=== PATIENT | female | born 1970 | race Caucasian/White ===

== ENCOUNTER → 2016-10-11 | Outpatient (CLI) | payer BC ==
--- NOTE | 2016-10-11 10:15 | MM ---
Reason for exam: clinical finding. Last mammogram was performed 11 months ago. History: Taking hormonal contraceptives for 2 months beginning at age 40. Physical Findings: Nurse did not find any significant physical abnormalities on exam. MG Diagnostic Mammo w CAD PRITI Bilateral CC and MLO view(s) were taken. Prior study comparison: November 03, 2015, bilateral MG screening mammo w CAD. November 01, 2014, bilateral MG screening mammo w CAD. The breast tissue is heterogeneously dense. This may lower the sensitivity of mammography. There is no discrete abnormality including area of concern. These results were verbally communicated with the patient and result sheet given to the patient on 10/11/16. ASSESSMENT: Incomplete: need additional imaging evaluation, BI-RAD 0 RECOMMENDATION: Ultrasound of the right breast.
--- NOTE | 2016-10-11 10:16 | USB ---
Reason for exam: additional evaluation requested from abnormal screening. History: Taking hormonal contraceptives for 2 months beginning at age 40. US Breast RT Right breast ultrasound includes all four quadrants, the retroareolar region and axilla. Finding demonstrate a 0.4 x 0.4 x 0.2cm oval lesion too small to characterize at 4 o'clock and a 0.7 x 0.7 x 0.2cm oval hypoechoic lesion at 10 o'clock. These results were verbally communicated with the patient and result sheet given to the patient on 10/11/16. ASSESSMENT: Probably benign, BI-RAD 3 RECOMMENDATION: Follow-up diagnostic mammogram and ultrasound of the right breast in 6 months. Manage patient on a clinical basis.
== END | disposition home or self-care (01) ==
LOC: RADMAMWWP 07:26
PROVIDERS: ATTEND Family Medicine
DX: R92.2 Inconclusive mammogram (principal); R92.8 Other abnormal and inconclusive findings on diagnostic imaging of breast
CPT/HCPCS: 76641; G0204

== ENCOUNTER → 2017-04-18 | Outpatient (CLI) | payer BC ==
--- NOTE | 2017-04-18 09:19 | MM ---
Reason for exam: follow-up at short interval from prior study. Last mammogram was performed 6 months ago. History: Took hormonal contraceptives for 2 months beginning at age 40. Physical Findings: Nurse did not find any significant physical abnormalities on exam. MG Diagnostic Mammo RT w CAD CC and MLO view(s) were taken of the right breast. Prior study comparison: October 11, 2016, bilateral MG diagnostic mammo w CAD PRITI. November 03, 2015, bilateral MG screening mammo w CAD. The breast tissue is heterogeneously dense. This may lower the sensitivity of mammography. There is no discrete abnormality. No significant new findings when compared with previous films. These results were verbally communicated with the patient and result sheet given to the patient on 04/18/17. ASSESSMENT: Incomplete: need additional imaging evaluation, BI-RAD 0 RECOMMENDATION: Ultrasound of the right breast.
--- NOTE | 2017-04-18 09:21 | USB ---
Reason for exam: follow-up at short interval from prior study. History: Took hormonal contraceptives for 2 months beginning at age 40. US Breast RT Technologist: Mariam Chin Right breast ultrasound includes all four quadrants, the retroareolar region and axilla. Finding demonstrates a 0.4 x 0.4 x 0.2cm oval lesion too small to characterize at 4 o'clock and a 0.9 x 0.8 x 0.3cm oval, hypoechoic lesion at 10 o'clock. These results were verbally communicated with the patient and result sheet given to the patient on 04/18/17. ASSESSMENT: Probably benign, BI-RAD 3 RECOMMENDATION: Follow-up diagnostic mammogram of both breasts in 6 months. Ultrasound of the right breast in 6 months.
== END | disposition home or self-care (01) ==
LOC: RADMAMWWP 07:35
PROVIDERS: ATTEND Family Medicine
DX: R92.8 Other abnormal and inconclusive findings on diagnostic imaging of breast (principal)
CPT/HCPCS: 76641; G0206

== ENCOUNTER → 2017-10-21 | Outpatient (CLI) | payer BC ==
--- NOTE | 2017-10-21 10:41 | MM ---
Reason for exam: follow-up at short interval from prior study. Last mammogram was performed 6 months ago. History: Family history of breast cancer in sister at age 71. Took hormonal contraceptives for 2 months beginning at age 40. Physical Findings: Nurse did not find any significant physical abnormalities on exam. MG 3D Diag Mammo W/Cad PRITI Bilateral CC and MLO view(s) were taken. Prior study comparison: April 18, 2017, right breast MG diagnostic mammo RT w CAD. October 11, 2016, bilateral MG diagnostic mammo w CAD PRITI. The breast tissue is heterogeneously dense. This may lower the sensitivity of mammography. There is no discrete abnormality. Focal asymmetry right MLO view is stable. No significant new findings when compared with previous films. These results were verbally communicated with the patient and result sheet given to the patient on 10/21/17. ASSESSMENT: Incomplete: need additional imaging evaluation, BI-RAD 0 RECOMMENDATION: Ultrasound of both breasts. Manage patient on a clinical basis.
--- NOTE | 2017-10-21 10:44 | USB ---
Reason for exam: additional evaluation requested from abnormal screening. History: Family history of breast cancer in sister at age 71. Took hormonal contraceptives for 2 months beginning at age 40. US Breast BILAT Right complete breast ultrasound includes all four quadrants, the retroareolar region and axilla. Finding demonstrates a 0.3 x 0.3 x 0.2cm oval, mixed lesion at 2 o'clock, a 0.3 x 0.2 x 0.2cm oval, cystic lesion at 6 o'clock, a 1.1 x 1.2 x 0.3cm oval, cystic lesion at 10 o'clock, a 0.6 x 0.3 x 0.2cm oval, cystic lesion at 11 o'clock and duct ectasia at the posterior nipple. Left complete breast ultrasound includes all four quadrants, the retroareolar region and axilla. Finding demonstrates a 0.4 x 0.5 x 0.2cm oval clustered lesion too small to characterize at 4 o'clock and ductal ectasia at 9 o'clock zone A. These results were verbally communicated with the patient and result sheet given to the patient on 10/21/17. ASSESSMENT: Probably benign, BI-RAD 3 RECOMMENDATION: Ultrasound of both breasts in 6 months. Manage patient on a clinical basis.
== END | disposition home or self-care (01) ==
LOC: RADMAMWWP 08:16
PROVIDERS: ATTEND Family Medicine
DX: N63.0 Unspecified lump in unspecified breast (principal)
CPT/HCPCS: 77062

== ENCOUNTER → 2017-12-17 | Outpatient (CLI) | payer BC ==
[2017-12-17 09:25] LABS: Basophils % (A) 1 %; Eosinophils # (A) 0.1 k/uL (0-0.7); Eosinophils % (A) 1 %; HCT 43.5 % (34.0-46.0); HGB 14.4 gm/dL (11.4-16.0); Lymphocytes # (A) 1.2 k/uL (1.0-4.8); Lymphocytes % (A) 26 %; MCHC 33.2 g/dL (31.0-37.0); MCV 93.3 fL (80.0-100.0); Mean Platelet Volume 6.8; Monocytes # (A) 0.4 k/uL (0-1.0); Monocytes % (A) 8 %; Neutrophils % (A) 62 %; Platelet Count 183 k/uL (150-450); RBC 4.67 m/uL (3.80-5.40); RDW 13.6 % (11.5-15.5); WBC 4.8 k/uL (3.8-10.6)
[2017-12-17 09:32] LABS: ALT 29 U/L (9-52); AST 23 U/L (14-36); Albumin 4.5 g/dL (3.5-5.0); Alkaline Phosphatase 49 U/L (38-126); Anion Gap 11 mmol/L; Blood Urea Nitrogen 17 mg/dL (7-17); Calcium 9.6 mg/dL (8.4-10.2); Carbon Dioxide 26 mmol/L (22-30); Chloride 105 mmol/L (98-107); Cholesterol 151 mg/dL (<200); Glucose 88 mg/dL (74-99); HDL Cholesterol 73 mg/dL (40-60); LDL Cholesterol,Calculated 66 mg/dL (0-99); Potassium 4.3 mmol/L (3.5-5.1); Sodium 142 mmol/L (137-145); Total Bilirubin 0.9 mg/dL (0.2-1.3); Triglycerides 61 mg/dL (<150)
== END | disposition home or self-care (01) ==
LOC: LABWHC1 08:32
PROVIDERS: ATTEND Internal Medicine
DX: Z00.00 Encounter for general adult medical examination without abnormal findings (principal)
CPT/HCPCS: 36415; 80053; 80061; 85025

== ENCOUNTER → 2018-05-02 | Outpatient (CLI) | payer BC ==
--- NOTE | 2018-05-02 10:01 | USB ---
Reason for exam: follow-up at short interval from prior study. History: Family history of breast cancer in sister at age 71. Took hormonal contraceptives for 2 months beginning at age 40. Physical Findings: Nurse Summary: right palpable 10 o'clock 0.5 x 1cm, movable, nontender, left breast nipple inversion, palpable 11 o'clock, 1 o'clock, 0.5 x 1cm, movable, nontender (nurse ts). US Breast BILAT Right complete breast ultrasound includes all four quadrants, the retroareolar region and axilla. Finding demonstrates three oval, cystic lesions measuring 0.4 x 0.4 x 0.3cm at 2 o'clock, 0.8 x 0.9 x 0.4cm at 6 o'clock and 1.2 x 0.8 x 0.3cm at 10 o'clock. Left complete breast ultrasound includes all four quadrants, the retroareolar region and axilla. Finding demonstrates a 0.8 x 0.6 x 0.4cm oval, vascular, probable node at 1 o'clock and no finding at 11 o'clock BB. These results were verbally communicated with the patient and result sheet given to the patient on 05/02/18. ASSESSMENT: Benign, BI-RAD 2 RECOMMENDATION: Routine screening mammogram of both breasts in 6 months. Back on schedule for October 2018.
== END | disposition home or self-care (01) ==
LOC: RADUSWWP 07:58
PROVIDERS: ATTEND Family Medicine
DX: R92.8 Other abnormal and inconclusive findings on diagnostic imaging of breast (principal)

== ENCOUNTER → 2018-12-25 | Outpatient (CLI) | payer BC ==
--- NOTE | 2018-12-26 07:40 | MM ---
Reason for exam: follow-up at short interval from prior study. Last mammogram was performed 1 year and 2 months ago. History: Family history of breast cancer in sister at age 71. Took hormonal contraceptives for 2 months beginning at age 40. Physical Findings: Nurse Summary: 3 palpables (nurse kp). MG 3D Diag Mammo W/Cad PRITI Bilateral CC and MLO view(s) were taken. Prior study comparison: October 21, 2017, bilateral MG 3d diag mammo w/cad PRITI. April 18, 2017, right breast MG diagnostic mammo RT w CAD. The breast tissue is heterogeneously dense. This may lower the sensitivity of mammography. There is chronic nodularity bilaterally. These results were verbally communicated with the patient and result sheet given to the patient on 12/25/18. ASSESSMENT: Incomplete: need additional imaging evaluation, BI-RAD 0 RECOMMENDATION: Ultrasound of both breasts. (palpable abnormality)
--- NOTE | 2018-12-26 07:42 | USB ---
Reason for exam: additional evaluation requested from abnormal screening. History: Family history of breast cancer in sister at age 71. Took hormonal contraceptives for 2 months beginning at age 40. US Breast BILAT Right complete breast ultrasound includes all four quadrants, the retroareolar region and axilla. Finding demonstrates a 3 x 2 x 3mm oval, cystic lesion at 3 o'clock, a 4 x 3 x 5mm lesion too small to characterize at 6 o'clock and a 12 x 4 x 8mm hypoechoic, vascular lesion at 10 o'clock questionable lymph node adjacent to cyst. Left complete breast ultrasound includes all four quadrants, the retroareolar region and axilla. Finding demonstrates no cystic or solid lesion seen. These results were verbally communicated with the patient and result sheet given to the patient on 12/25/18. ASSESSMENT: Probably benign, BI-RAD 3 RECOMMENDATION: Follow-up diagnostic mammogram and ultrasound of the right breast in 6 months.
== END | disposition home or self-care (01) ==
LOC: RADMAMWWP 13:29
PROVIDERS: ATTEND Family Medicine
DX: R92.8 Other abnormal and inconclusive findings on diagnostic imaging of breast (principal)
CPT/HCPCS: 77062; 77066

== ENCOUNTER → 2019-01-03 | Outpatient (CLI) | payer BC ==
[2019-01-03 07:50] LABS: Basophils % (A) 1 %; Eosinophils # (A) 0.1 k/uL (0-0.7); Eosinophils % (A) 1 %; HGB 14.1 gm/dL (11.4-16.0); Lymphocytes # (A) 1.6 k/uL (1.0-4.8); Lymphocytes % (A) 20 %; MCH 30.2 pg (25.0-35.0); MCHC 32.1 g/dL (31.0-37.0); MCV 94.2 fL (80.0-100.0); Mean Platelet Volume 7.5; Monocytes # (A) 0.5 k/uL (0-1.0); Monocytes % (A) 7 %; Neutrophils # (A) 5.3 k/uL (1.3-7.7); Neutrophils % (A) 69 %; Platelet Count 230 k/uL (150-450); RBC 4.67 m/uL (3.80-5.40); RDW 13.2 % (11.5-15.5); WBC 7.7 k/uL (3.8-10.6)
[2019-01-03 12:01] LABS: African American GFR (CKD) 117.1 (60.0-200.0); Albumin 4.3 g/dL (3.80-4.90); Albumin/Globulin Ratio 2.15 (1.60-3.17); Anion Gap 7.3 mmol/L (4.00-12.00); BUN/Creat Ratio 18.57 Ratio (12.00-20.00); Calcium 9.3 mg/dL (8.7-10.3); Carbon Dioxide 28.7 mmol/L (21.6-31.8); LDL Cholesterol,Calculated 58.4 mg/dL (0.0-131.0); Total Bilirubin 0.9 mg/dL (0.3-1.2); Total Protein 6.3 g/dL (6.2-8.2); VLDL Calculation 13.6 mg/dL (5.00-40.00)
== END | disposition home or self-care (01) ==
LOC: LABWHC1 06:39
PROVIDERS: ATTEND Internal Medicine
DX: Z00.00 Encounter for general adult medical examination without abnormal findings (principal); E55.9 Vitamin D deficiency, unspecified
CPT/HCPCS: 36415; 80053; 80061; 82306; 85025

== ENCOUNTER → 2019-01-29 | Outpatient (CLI) | payer BC ==
[2019-01-29 15:23] LABS: Basophils % (A) 0 %; Eosinophils # (A) 0.1 k/uL (0-0.7); Eosinophils % (A) 1 %; HCT 42.1 % (34.0-46.0); HGB 13.9 gm/dL (11.4-16.0); Lymphocytes # (A) 1.4 k/uL (1.0-4.8); Lymphocytes % (A) 16 %; MCH 30.6 pg (25.0-35.0); MCV 92.7 fL (80.0-100.0); Mean Platelet Volume 7.2; Monocytes # (A) 0.5 k/uL (0-1.0); Monocytes % (A) 6 %; Neutrophils # (A) 6.2 k/uL (1.3-7.7); Neutrophils % (A) 75 %; Platelet Count 247 k/uL (150-450); RBC 4.54 m/uL (3.80-5.40); WBC 8.3 k/uL (3.8-10.6)
== END | disposition home or self-care (01) ==
LOC: LABPAT 14:25
PROVIDERS: ATTEND Obstetrics & Gynecology Obstetrics
DX: Z01.812 Encounter for preprocedural laboratory examination (principal); N92.0 Excessive and frequent menstruation with regular cycle; N84.0 Polyp of corpus uteri
CPT/HCPCS: 36415; 85025

== ENCOUNTER 2019-02-06 06:33 | Day surgery (SDC) | payer BC ==
[2019-01-30 12:30] VITALS: BMI 23.2
--- NOTE | 2019-02-05 13:17 | P.HPOB ---
History of Present Illness H&P Date: 02/05/19 Chief Complaint: menorrhagia, endometrial polyp This is a 48yo that presents with c/o HMB, increasing over the last few months. she was previously on an ocp and did discontinue it about 2 years, and has done well. she has noted positive heavy menses, with irregular interval at times. Positive clots. she had a tubal ligation done after her last child and isnt interested in going back on an ocp. she denies changes in bladder bowel habits. she was counseled on mirena and EA and she elects EA. Review of Systems Constitutional: Denies chills, Denies fatigue, Denies fever Ears, nose, mouth and throat: Denies headache Cardiovascular: Denies chest pain, Denies edema Respiratory: Denies cough Gastrointestinal: Denies constipation, Denies diarrhea, Denies nausea, Denies vomiting Genitourinary: Reports Past Medical History Past Medical History: No Reported History History of Any Multi-Drug Resistant Organisms: None Reported Past Surgical History: Appendectomy, Tubal Ligation Additional Past Surgical History / Comment(s): [place] teeth extracted. Past Anesthesia/Blood Transfusion Reactions: No Reported Reaction Past Psychological History: No Psychological Hx Reported Smoking Status: Never smoker Past Alcohol Use History: Rare Past Drug Use History: None Reported - Past Family History Mother Family Medical History: No Reported History Medications and Allergies Home Medications Medication Instructions Recorded Confirmed Type Cholecalciferol (Vitamin D3) 2,000 unit PO DAILY 01/30/19 01/30/19 History [Vitamin D3] Vitamin B Complex 1 each PO DAILY 01/30/19 01/30/19 History Allergies Allergy/AdvReac Type Severity Reaction Status Date / Time Sulfa (Sulfonamide Allergy Rash/Hives Verified 01/30/19 12:31 Antibiotics) Exam Osteopathic Statement: *. No significant issues noted on an osteopathic structural exam other than those noted in the History and Physical/Consult. targeted exam done on this date, in general this is a well nourished well developed female in NAD, heart has a RRR, breathing is non labored. - OBG Physical Exam Abdomen: bowel sounds normal Vulva: both: normal Vagina: no discharge, no atrophic mucosa, no ulceration, no cystocele Cervix: no cyst noted, no discharge, no friable Uterus: normal size Adnexa: both: normal Anus/Rectum: normal perianal skin Assessment and Plan (1) Menorrhagia Status: Acute Code(s): N92.0 - EXCESSIVE AND FREQUENT MENSTRUATION WITH REGULAR CYCLE SNOMED Code(s): 195627566 Plan: Plan H DC EA. surgery reviewed in detail and all questions answered. pos enod metrial polyp to be removed at the time of the DC
[~2019-02-06 06:33] MED LIST: DEXAMETHASONE SOD PHOSPHATE 10 MG/ML 1 ML VIAL IV ONE; HYDROmorphone 0.5 MG/0.5 ML SYRINGE IVP PRN; LACTATED RINGERS 1,000 ML IV SCH; MIDAZOLAM 2 MG/2 ML VIAL IV PRN; ONDANSETRON 4 MG/2 ML VIAL IVP ONE; Pre Op ABX Message 1 EACH MISC MISCELLANE ONE; SCOPOLAMINE 1.5MG/72HR PATCH TRANSDERM ONE
[2019-02-06] MEDS ORDERED: fentaNYL (PF) 50 MCG/ML 2 ML AMP ONE (07:31)
[2019-02-06] MEDS ORDERED: KETOROLAC 30 MG/ML 1 ML VIAL ONE (07:31)
[2019-02-06] MEDS ORDERED: MIDAZOLAM 2 MG/2 ML VIAL ONE (07:31)
[2019-02-06] MEDS ORDERED: LIDOCAINE 1% INJ 10MG/ML (20 ML MDV) ONE (07:31)
[2019-02-06] MEDS ORDERED: PROPOFOL 10 MG/ML 20 ML VIAL IV ONE (07:31)
[2019-02-06 08:24] VITALS: TEMP 97
[2019-02-06 08:35] VITALS: RESP 18
--- NOTE | 2019-02-06 09:10 | P.OP ---
Date of Procedure: 02/06/19 Preoperative Diagnosis: Menorrhagia Postoperative Diagnosis: Same Procedure(s) Performed: Hysteroscopy, dilation and curettage, NovaSure endometrial ablation. Anesthesia: MAC Surgeon: Stephanie Garza Estimated Blood Loss (ml): 5 IV fluids (ml): 500 Urine output (ml): 200 Pathology: other (Endometrial curettings) Condition: stable Disposition: PACU Indications for Procedure: Heavy menstrual bleeding Operative Findings: Slightly enlarged cavity and 11 cm, for the NovaSure length of 6.5, 4.4 cm for width for a total cycle time of 57 seconds. Description of Procedure: Patient was seen in the preoperative area and informed consent was obtained. All questions were answered. Patient was taken back to the operating suite where general anesthesia was obtained without difficulty by the anesthesia department. She was then prepped and draped in normal sterile fashion in the dorsal lithotomy position. A red rubber catheter was then used to drain the bladder clear yellow urine. A weighted speculum was placed in the posterior vaginal vault the anterior lip of the cervix was visualized and grasped with a single-tooth tenaculum. Endocervical canal was then dilated. Uterine sound was then used to estimate the total uterine length of 11 cm. At this time the hysteroscope was placed through the cervix and toward the endometrial cavity. The above-noted findings were visualized. At this time a sharp curettage was performed until gritty texture was noted in all 4 quadrants of the uterine cavity. The NovaSure device was opened and set to the appropriate measurements for this patient's uterus. It was then operated according to resin mixer's instruction after the cavity assessment was passed the cycle was completed for 57 seconds. Afterwards device was removed without difficulty the single-tooth tenaculum was taken off the anterior lip of the cervix. Hemostasis was appreciated. All counts are correct 2 patient tolerated procedure well was taken to the recovery room awake and in stable condition.
[2019-02-06 09:20] VITALS: BP 105/71; PULSE 66
== END 2019-02-06 10:28 | disposition home or self-care (01) ==
LOC: OR 06:33
PROVIDERS: ATTEND Obstetrics & Gynecology Obstetrics
DX: N92.0 Excessive and frequent menstruation with regular cycle (principal); N84.0 Polyp of corpus uteri; Z98.51 Tubal ligation status; Z88.2 Allergy status to sulfonamides
CPT/HCPCS: 81025; 88305; 58563; J2250; J1100; J2405; J2001; J3010; J1885; J2704

== ENCOUNTER → 2019-09-12 | Outpatient (CLI) | payer BC ==
--- NOTE | 2019-09-12 10:41 | MM ---
Reason for exam: follow-up at short interval from prior study. Last mammogram was performed 9 months ago. History: Family history of breast cancer in sister at age 71. Took hormonal contraceptives for 2 months beginning at age 40. Physical Findings: Nurse did not find any significant physical abnormalities on exam. MG 3D Diag Mammo W/Cad RT CC and MLO view(s) were taken of the right breast. Prior study comparison: December 25, 2018, bilateral MG 3d diag mammo w/cad PRITI. October 21, 2017, bilateral MG 3d diag mammo w/cad PRITI. The breast tissue is heterogeneously dense. This may lower the sensitivity of mammography. Stable nodularity. 6 month follow up recommended from 12/25/18. These results were verbally communicated with the patient and result sheet given to the patient on 09/12/19. ASSESSMENT: Probably benign, BI-RAD 3 RECOMMENDATION: Follow-up diagnostic mammogram of both breasts in 3 months. Ultrasound of the right breast in 3 months. Back on schedule for December 2019. Manage patient on a clinical basis.
== END | disposition home or self-care (01) ==
LOC: RADMAMWWP 09:29
PROVIDERS: ATTEND Family Medicine
DX: N63.10 Unspecified lump in the right breast, unspecified quadrant (principal); N63.20 Unspecified lump in the left breast, unspecified quadrant; R92.8 Other abnormal and inconclusive findings on diagnostic imaging of breast
CPT/HCPCS: 77061; 77065

== ENCOUNTER → 2019-11-21 | Outpatient (CLI) | payer BC ==
[2019-11-21 08:02] LABS: Basophils % (A) 1 %; Eosinophils # (A) 0.1 k/uL (0-0.7); Eosinophils % (A) 2 %; HCT 43.9 % (34.0-46.0); HGB 14.7 gm/dL (11.4-16.0); Lymphocytes # (A) 1.5 k/uL (1.0-4.8); Lymphocytes % (A) 24 %; MCH 31.7 pg (25.0-35.0); MCHC 33.5 g/dL (31.0-37.0); MCV 94.8 fL (80.0-100.0); Mean Platelet Volume 7.9; Monocytes # (A) 0.5 k/uL (0-1.0); Monocytes % (A) 8 %; Neutrophils # (A) 3.9 k/uL (1.3-7.7); Neutrophils % (A) 63 %; Platelet Count 231 k/uL (150-450); RBC 4.63 m/uL (3.80-5.40); RDW 12.5 % (11.5-15.5); WBC 6.1 k/uL (3.8-10.6)
== END | disposition home or self-care (01) ==
LOC: LABPAT 07:13
PROVIDERS: ATTEND Obstetrics & Gynecology Obstetrics
DX: Z01.818 Encounter for other preprocedural examination (principal); R31.9 Hematuria, unspecified
CPT/HCPCS: 36415; 85025

== ENCOUNTER 2019-11-27 08:40 | Day surgery (SDC) | payer BC ==
[2019-11-26 10:44] VITALS: BMI 23.6
[~2019-11-27 08:40] MED LIST changes: +LIDOCAINE 1% (10MG/ML) FOR IV START INTRADERMA PRN; -MIDAZOLAM 2 MG/2 ML VIAL IV PRN
[2019-11-27] MEDS ORDERED: fentaNYL (PF) 50 MCG/ML 2 ML AMP ONE (10:36)
[2019-11-27] MEDS ORDERED: KETOROLAC 30 MG/ML 1 ML VIAL ONE (10:36)
[2019-11-27] MEDS ORDERED: LIDOCAINE 1% INJ 10MG/ML (20 ML MDV) ONE (10:36)
[2019-11-27] MEDS ORDERED: MIDAZOLAM 2 MG/2 ML VIAL ONE (10:36)
[2019-11-27] MEDS ORDERED: PROPOFOL 10 MG/ML 20 ML VIAL IV ONE (10:36)
[2019-11-27] MEDS ORDERED: SILVER NITRATE APPLICATOR 1 EACH STICK..EA. TOPICAL ONE (10:55)
[2019-11-27 11:12] VITALS: TEMP 97.7
--- NOTE | 2019-11-27 11:44 | P.OP ---
Date of Procedure: 11/27/19 Preoperative Diagnosis: Hematometra status post endometrial ablation January 2019. Postoperative Diagnosis: Same plus cervical stenosis Procedure(s) Performed: Hysteroscopy, dilation and curettage Anesthesia: MAC Surgeon: Stephanie Garza Estimated Blood Loss (ml): 5 IV fluids (ml): 200 Urine output (ml): 100 Pathology: other (Endometrial curettings) Condition: stable Disposition: PACU Indications for Procedure: This is a 49-year-old status post endometrial ablation in January of last year. Patient states One week ago she started having abdominal pain. Patient was sterilely seen later that week in the office ultrasound was performed and diagnosis of hematometra was made. Patient elected hysteroscopy, dilation and curettage versus definitive treatment with hysterectomy. Operative Findings: Upon dilation of the cervix thick brown old blood was noted to be released from the endometrial cavity, on hysteroscopy the cavity was clear of any further pockets of hematometra. Description of Procedure: Patient was seen in the preoperative area procedure was reviewed and questions were answered. Patient was taken back to the operating suite where general anesthesia was obtained without difficulty by the anesthesia department. She was prepped and draped in normal sterile fashion in the dorsal lithotomy position. A red rubber catheter was used to drain the bladder of clear yellow urine. A weighted speculum was placed in the posterior vaginal vault the interval of the cervix is visualized and grasped with a single-tooth tenaculum. Of note uterine procidentia was noted to be at the vaginal opening with anesthesia. The endocervical canal was then gently dilated to [id number], on uterine sound measurement of the uterus was noted to be 10 cm. Immediate release of old blood was noted when the cervix was dilated. On hysteroscopy the cavity appeared cleared. A sharp curettage was then performed. This was then sent to pathology for analysis. The single-tooth tenaculum was taken off of the anterior lip of the cervix. A small amount bleeding was noted therefore silver nitrate was used to obtain hemostasis at the tenaculum sites. On further inspection hemostasis was appreciated. All instruments were then removed from the patient's vaginal vault. All counts were noted be correct 2 Patient tolerated procedure well and was taken to the recovery room awake in stable condition.
[2019-11-27 11:52] VITALS: RESP 17
[2019-11-27 12:05] VITALS: BP 114/70; PULSE 66
== END 2019-11-27 12:19 | disposition home or self-care (01) ==
LOC: OR 08:40
PROVIDERS: ATTEND Obstetrics & Gynecology Obstetrics
DX: N85.7 Hematometra (principal); Z98.51 Tubal ligation status; Z90.49 Acquired absence of other specified parts of digestive tract; Z98.890 Other specified postprocedural states; Z91.030 Bee allergy status; Z88.2 Allergy status to sulfonamides; Z88.6 Allergy status to analgesic agent; Z82.49 Family history of ischemic heart disease and other diseases of the circulatory system; Z82.3 Family history of stroke; Z80.3 Family history of malignant neoplasm of breast; Z83.3 Family history of diabetes mellitus; Z80.41 Family history of malignant neoplasm of ovary; Z81.1 Family history of alcohol abuse and dependence
CPT/HCPCS: 81025; 88305; 58558; J2250; J1100; J2405; J2001; J3010; J1885; J2704

== ENCOUNTER → 2020-01-08 | Outpatient (CLI) | payer BC ==
[2020-01-08 07:51] LABS: Basophils # (A) 0.1 k/uL (0-0.2); Basophils % (A) 1 %; Eosinophils # (A) 0.1 k/uL (0-0.7); Eosinophils % (A) 2 %; HCT 43.9 % (34.0-46.0); Lymphocytes # (A) 1.7 k/uL (1.0-4.8); Lymphocytes % (A) 26 %; MCH 31.3 pg (25.0-35.0); MCHC 34.1 g/dL (31.0-37.0); MCV 91.9 fL (80.0-100.0); Mean Platelet Volume 7.9; Monocytes # (A) 0.5 k/uL (0-1.0); Monocytes % (A) 8 %; Neutrophils % (A) 61 %; Platelet Count 213 k/uL (150-450); RBC 4.78 m/uL (3.80-5.40); RDW 12.5 % (11.5-15.5); WBC 6.5 k/uL (3.8-10.6)
[2020-01-08 13:18] LABS: African American GFR (CKD) 116.3 (60.0-200.0); Albumin 4.5 g/dL (3.80-4.90); Albumin/Globulin Ratio 2.05 (1.60-3.17); Anion Gap 7.6 mmol/L (4.00-12.00); BUN/Creat Ratio 22.86 Ratio (12.00-20.00); Calcium 9.6 mg/dL (8.7-10.3); Carbon Dioxide 28.4 mmol/L (21.6-31.8); Chol/HDL Ratio 1.93; Globulin 2.2 g/dL (1.6-3.3); LDL Cholesterol,Calculated 58.4 mg/dL (0.0-131.0); Non-African American GFR(CKD) 100.3 (60.0-200.0); Potassium 3.9 mmol/L (3.5-5.5); Total Bilirubin 0.9 mg/dL (0.3-1.2); Total Protein 6.7 g/dL (6.2-8.2); VLDL Calculation 11.6 mg/dL (5.00-40.00)
== END | disposition home or self-care (01) ==
LOC: LABWHC1 07:08
PROVIDERS: ATTEND Internal Medicine
DX: Z00.00 Encounter for general adult medical examination without abnormal findings (principal); E55.9 Vitamin D deficiency, unspecified
CPT/HCPCS: 36415; 80053; 80061; 85025

== ENCOUNTER → 2020-02-19 | Outpatient (CLI) | payer BC ==
--- NOTE | 2020-02-19 10:24 | MM ---
Reason for exam: follow-up at short interval from prior study. Last mammogram was performed 5 months ago. History: Family history of breast cancer in sister at age 71. Took hormonal contraceptives for 15 years. Physical Findings: Nurse did not find any significant physical abnormalities on exam. MG 3D Diag Mammo W/Cad PRITI Bilateral CC and MLO view(s) were taken. Prior study comparison: September 12, 2019, right breast MG 3d diag mammo w/cad RT. December 25, 2018, bilateral MG 3d diag mammo w/cad PRITI. The breast tissue is heterogeneously dense. This may lower the sensitivity of mammography. Finding: There is a 10-12 mm oval mass located 4-5 cm from the nipple in the upper outer quadrant, middle position of the right breast. Asymmetric breast tissue left upper outer quadrant is stable. There is no discrete abnormality. New finding since September 12, 2019 and December 25, 2018. These results were verbally communicated with the patient and result sheet given to the patient on 02/19/20. ASSESSMENT: Incomplete: need additional imaging evaluation, BI-RAD 0 RECOMMENDATION: Ultrasound of the right breast.
--- NOTE | 2020-02-19 10:26 | USB ---
Reason for exam: additional evaluation requested from abnormal screening. History: Family history of breast cancer in sister at age 71. Took hormonal contraceptives for 15 years. US Breast Limited RT Right limited breast ultrasound including focal area of concern, retroareolar and axilla demonstrates a 1.0 x 0.5 x 0.8cm oval, cystic lesion at 10 o'clock and a 0.5 x 0.4 x 0.7cm oval, cystic lesion at 10 o'clock. These results were verbally communicated with the patient and result sheet given to the patient on 02/19/20. ASSESSMENT: Benign, BI-RAD 2 RECOMMENDATION: Routine screening mammogram of both breasts in 1 year.
== END | disposition home or self-care (01) ==
LOC: RADMAMWWP 08:57
PROVIDERS: ATTEND Obstetrics & Gynecology Obstetrics
DX: R92.8 Other abnormal and inconclusive findings on diagnostic imaging of breast (principal)
CPT/HCPCS: 77062; 77066

== ENCOUNTER → 2021-02-20 | Outpatient (CLI) | payer BC ==
--- NOTE | 2021-02-23 11:25 | MM ---
Reason for exam: screening (asymptomatic). Last mammogram was performed 1 year ago. History: Family history of breast cancer in sister at age 71. Took hormonal contraceptives for 15 years. Physical Findings: A clinical breast exam by your physician is recommended on an annual basis and results should be correlated with mammographic findings. MG 3D Screening Mammo W/Cad Bilateral CC and MLO view(s) were taken. Prior study comparison: September 12, 2019, right breast MG 3d diag mammo w/cad RT. The breast tissue is heterogeneously dense. This may lower the sensitivity of mammography. There are benign appearing round calcifications bilaterally. There is chronic nodularity in the right breast. There is no discrete abnormality. ASSESSMENT: Benign, BI-RAD 2 RECOMMENDATION: Routine screening mammogram of both breasts in 1 year.
== END | disposition home or self-care (01) ==
LOC: RADMAMWWP 07:17
PROVIDERS: ATTEND Obstetrics & Gynecology Obstetrics
DX: Z12.31 Encounter for screening mammogram for malignant neoplasm of breast (principal); Z80.3 Family history of malignant neoplasm of breast; Z79.3 Long term (current) use of hormonal contraceptives
CPT/HCPCS: 77063; 77067

== ENCOUNTER → 2021-04-28 | Outpatient (CLI) | payer BC ==
--- NOTE | 2021-04-28 12:15 | BD ---
EXAMINATION TYPE: Axial Bone Density DATE OF EXAM: 04/28/2021 COMPARISON: NONE CLINICAL HISTORY: Height: 5 FT 7 IN Weight: 166 FRAX RISK QUESTIONS: Alcohol (3 or more units per day): NO Family History (Parent hip fracture): NO Glucocorticoids (More than 3mos): NO (Ex: prednisone, prednisolone, methylprednisolone, dexamethasone, and hydrocortisone). History of Fracture in Adulthood: NO Secondary Osteoporosis: 1. Type 1 Diabetes: NO 2. Hyperthyroidism: NO 3. Menopause before 45: NO 4. Malnutrition: NO 5. Chronic liver disease: NO Rheumatoid Arthritis: NO Current Tobacco Use: NO RISK FACTORS HISTORY OF: Surgery to Spine/Hip(right/left)/Wrist (right/left): NO Family History of Osteoporosis: NO Active: YES Diet low in dairy products/other sources of calcium: NO Postmenopausal woman: NO If Premenopausal, do you have irregular periods: LMP 10/01 Take estrogen and/or progesterone medications: NO Lost more than 2 inches in height since high school: NO Poor Health: GOOD Hyperparathyroidism: NO Adrenal Insufficiency: NO MEDICATIONS: Additional Medications: SLEEPING PILL NEEDED Additional History: EXAM MEASUREMENTS: Bone mineral densitometry was performed using the [employer] System. Bone mineral density as measured about the Lumbar spine is: ----- L1-L4(G/cm2): 1.114 T Score Values are as follows: ----- L2: -1.1 ----- L3: -0.2 ----- L4: -0.6 ----- L1-L4: -0.5 BASELINE Bone mineral density about the R hip (g/cm2): 0.864 Bone mineral density about the L hip (g/cm2): 0.877 T Score values are as follows: -----R Neck: -1.2 -----L Neck: -1.2 -----R Total: -1.0 -----L Total: -1.0 BASELINE IMPRESSION: Osteopenia (T Score between -2.5 and -1) at the femoral neck level in the bilateral hips. There is slightly increased risk of fracture and the patient may be considered for treatment. Re-Screen 2-5 years. NOTE: T-SCORE=SD OF THE YOUNG ADULT MEAN.
== END | disposition home or self-care (01) ==
LOC: RADBDWWP 07:12
PROVIDERS: ATTEND Internal Medicine
DX: M85.89 Other specified disorders of bone density and structure, multiple sites (principal)
CPT/HCPCS: 77080

== ENCOUNTER → 2022-02-23 | Outpatient (CLI) | payer BC ==
--- NOTE | 2022-03-01 19:38 | MM ---
Reason for Exam: Screening (asymptomatic). Last screening mammogram was performed 12 month(s) ago. Patient History: Menarche at age 10. First Full-Term at age 28. Late child-bearing (after 28). Patient used Hormonal Contraceptives for 15 years. Sister had breast cancer, age 71. Last menstrual period: 01/23/2022 Risk Values: Kisha 5 year model risk: 2.2%. NCI Lifetime model risk: 16.5%. Prior Study Comparison: 09/12/2019 Right Diagnostic Mammogram, [facility]. 02/19/2020 Bilateral Diagnostic Mammogram, [facility]. 02/20/2021 Bilateral Screening Mammogram, [facility]. Tissue Density: The breast tissue is heterogeneously dense. This may lower the sensitivity of mammography. Findings: Analyzed By CAD. Chronic nodularity lateral aspect of both breasts. Areas of asymmetric density also remain unchanged. No significant change from prior exams. Overall Assessment: Benign, BI-RAD 2 Management: Screening Mammogram of both breasts in 1 year. 1. Patient should continue monthly self breast exams. 2. A clinical breast exam by your physician is recommended on an annual basis. 3. This exam should not preclude additional follow-up of suspicious palpable abnormalities. Electronically signed and approved by: Carline Park M.D. Radiologist
== END | disposition home or self-care (01) ==
LOC: RADMAMWWP 07:00
PROVIDERS: ATTEND Obstetrics & Gynecology Obstetrics
DX: Z12.31 Encounter for screening mammogram for malignant neoplasm of breast (principal); Z80.3 Family history of malignant neoplasm of breast
CPT/HCPCS: 77063; 77067

== ENCOUNTER → 2022-03-13 | Outpatient (CLI) | payer BC ==
[2022-03-13 11:37] LABS: Basophils # (A) 0.04 X 10*3/uL (0.00-0.10); Basophils % (A) 0.9 %; Eosinophils # (A) 0.08 X 10*3/uL (0.04-0.35); Eosinophils % (A) 1.8 %; HCT 44.3 % (37.2-46.3); HGB 14.8 g/dL (12.0-15.0); Immature Grans, Automated 0 %; Lymphocytes # (A) 1.79 X 10*3/uL (0.90-5.00); Lymphocytes % (A) 39.6 %; MCH 30.8 pg (27.0-32.0); MCHC 33.4 g/dL (32.0-37.0); MCV 92.3 fL (80.0-97.0); Mean Platelet Volume 9.9 fL (9.5-12.2); Monocytes # (A) 0.46 X 10*3/uL (0.20-1.00); Monocytes % (A) 10.2 %; NRBC Per 100 WBC 0 /100 WBCS (0.0-0.0); Neutrophils # (A) 2.15 X 10*3/uL (1.80-7.70); Neutrophils % (A) 47.5 %; Platelet Count 223 X 10*3/uL (140-440); RDW 12.4 % (11.5-14.5); WBC 4.52 X 10*3/uL (4.50-10.00)
[2022-03-13 11:45] LABS: African American GFR (CKD) 114.6 (60.0-200.0); Anion Gap 10.5 mmol/L (10.00-18.00); Blood Urea Nitrogen 13.4 mg/dL (9.0-27.0); Carbon Dioxide 28.5 mmol/L (20.0-27.5); Non-African American GFR(CKD) 98.9 (60.0-200.0); Potassium 4.6 mmol/L (3.5-5.5)
== END | disposition home or self-care (01) ==
LOC: LABPAT 08:17
PROVIDERS: ATTEND Obstetrics & Gynecology Obstetrics
DX: Z01.812 Encounter for preprocedural laboratory examination (principal); N95.0 Postmenopausal bleeding; N85.7 Hematometra; N83.209 Unspecified ovarian cyst, unspecified side
CPT/HCPCS: 80051; 82565; 82947; 84520; 85025; 87086

== ENCOUNTER 2022-03-22 07:19 | Day surgery (SDC) | payer BC ==
[~2022-03-22 07:19] MED LIST changes: -DEXAMETHASONE SOD PHOSPHATE 10 MG/ML 1 ML VIAL IV ONE; +DEXAMETHASONE SOD PHOSPHATE 4 MG/ML 1 ML VIAL IV ONE; -Pre Op ABX Message 1 EACH MISC MISCELLANE ONE; +SCOPOLAMINE 1 MG/72 HR PATCH TRANSDERM ONE; -SCOPOLAMINE 1.5MG/72HR PATCH TRANSDERM ONE
[2022-03-22] MEDS ORDERED: MIDAZOLAM 2 MG/2 ML VIAL IVP ONE (08:30)
--- NOTE | 2022-03-22 08:54 | P.HPOB ---
History of Present Illness H&P Date: 03/22/22 Chief Complaint: Postmenopausal bleeding, complex ovarian cyst, failed endom etrial ablation This is a 51-year-old female with noted complaints of postmenopausal bleeding status post endometrial ablation a few years ago. Patient had an ultrasound for evaluation the pelvis revealing a 3 cm ovarian cyst with septations. OVA 1 was drawn and low risk in nature. Patient has a history of an hematometra s/p EA for which she elected hysteroscopy, dilation and curettage and has done well up until this episode of postmenopausal bleeding. Patient does have a significant family history of maternal grandmother that had ovarian cancer, and wishes definitive therapy with hysterectomy. Review of Systems Constitutional: Denies chills, Denies fatigue, Denies fever Ears, nose, mouth and throat: Denies headache Cardiovascular: Denies leg edema Respiratory: Denies dyspnea Gastrointestinal: Denies constipation, Denies diarrhea, Denies nausea, Denies vomiting Genitourinary: Denies Menstruation: Reports as per HPI Past Medical History Past Medical History: No Reported History History of Any Multi-Drug Resistant Organisms: None Reported Past Surgical History: Appendectomy, Tubal Ligation, Uterine Ablation Additional Past Surgical History / Comment(s): D & C Past Anesthesia/Blood Transfusion Reactions: No Reported Reaction, Motion Sick ness Smoking Status: Never smoker - Past Family History Mother Family Medical History: No Reported History Medications and Allergies Home Medications Medication Instructions Recorded Confirmed Type Cholecalciferol (Vitamin D3) 125 mcg PO DAILY 01/30/19 03/22/22 History [Vitamin D3] Ascorbic Acid [Vitamin C] 500 mg PO DAILY 03/17/22 03/22/22 History Calcium Carbonate [Calcium] 600 mg PO DAILY 03/17/22 03/22/22 History Multivitamins, Thera [Multivitamin 1 tab PO DAILY 03/17/22 03/22/22 History (formulary)] Allergies Allergy/AdvReac Type Severity Reaction Status Date / Time Sulfa (Sulfonamide Allergy Rash/Hives Verified 03/22/22 07:49 Antibiotics) Exam Osteopathic Statement: *. No significant issues noted on an osteopathic structural exam other than those noted in the History and Physical/Consult. Vital Signs Temp Pulse Resp BP Pulse Ox 03/22/22 08:41 62 16 125/71 100 03/22/22 07:50 98.5 F 80 16 143/86 99 Intake and Output 03/21/22 03/22/22 03/22/22 22:59 06:59 14:59 Other: Weight 71.1 kg Targeted physical exam is performed in general this a well-nourished well- developed postmenopausal female in no acute distress, breathing is nonlabored, heart has regular rate and rhythm, abdomen is soft and nontender on genitourinary exam external genitalia is normal for age without lesions or masses vaginal mucosa is pink and rugated cervix is without lesion uterus is mobile and nontender adnexal masses are not appreciated. Assessment and Plan (1) PMB (postmenopausal bleeding) Current Visit: Yes Status: Acute Code(s): N95.0 - POSTMENOPAUSAL BLEEDING SNOMED Code(s): 11686423 (2) Ovarian cyst Current Visit: Yes Status: Acute Code(s): N83.209 - UNSPECIFIED OVARIAN CYST, UNSPECIFIED SIDE SNOMED Code(s): 31288214 (3) FH: ovarian cancer Current Visit: Yes Status: Acute Code(s): Z80.41 - FAMILY HISTORY OF MALIGNANT NEOPLASM OF OVARY SNOMED Code(s): 339821795 Plan: 51-year-old female that is admitted for scheduled robotic cyst vaginal hysterectomy with bilateral salpingo-oophorectomy, patient has history of endometrial ablation with menometrorrhagia, continue postmenopausal bleeding. Ultrasound evaluation revealing an ovarian cyst with a single septation, negative over 1 testing. Patient elected definitive treatment with hysterectomy, bilateral sopping go for ectomy. Patient is counseled on risks of surgery including but not limited to infection, bleeding, damage to bladder bowel ureteric injury patient states understanding and wishes to proceed.
--- NOTE | 2022-03-22 09:31 | P.ANPRN ---
Procedure Note - Anesthesia - Epidural/Spinal Spinal Time Out Performed: Yes Date of Procedure: 03/22/22 Procedure Start Time: 08:32 Procedure Stop Time: 08:38 Location of Patient: PreOp Indication: Acute Post-Operative Pain, Requested by Surgeon Sedation Type: Sedate with meaningful contact maintained Preparation: Sterile Prep Position: Sitting Catheter: None Needle Guage: 25 (Alexandro) Narrative: After the informed consent was obtained and all the questions answered, Patient was positioned in sitting posture. The back was cleaned and draped after palpating the L3-L4 interspace. 3 mL of 1% lidocaine infiltrated into the aforementioned space. A 25-gauge Whittacre needle was introduced into the space and a clear flow of CSF was obtained. No blood was aspirated. 300 g of Duramorph and 25 g fentanyl drawn up with a Filter Needle and injected into the spinal space under aseptic precautions. Needle was withdrawn and the puncture benito with a platelet dressed with Band-Aid. Patient tolerated the procedure very well with no apparent complications noted. Blood Aspirated: No Pain Paresthesia on Injection Noted: No Events: Uneventful and Well Tolerated
[2022-03-22] MEDS ORDERED: LIDOCAINE 2% INJ 20 MG/ML (2 ML VIAL) ONE (09:54)
[2022-03-22] MEDS ORDERED: GLYCOPYRROLATE 0.2 MG/ML 2 ML VIAL ONE (09:54)
[2022-03-22] MEDS ORDERED: PROPOFOL 10 MG/ML 20 ML VIAL IV ONE (09:54)
[2022-03-22] MEDS ORDERED: MIDAZOLAM 2 MG/2 ML VIAL ONE (09:54)
[2022-03-22] MEDS ORDERED: SUCCINYLCHOLINE CHLORIDE 200 MG/10 ML VIAL IV ONE (09:54)
[2022-03-22] MEDS ORDERED: NEOSTIGMINE 1 MG/ML 10 ML VIAL ONE (09:54)
[2022-03-22] MEDS ORDERED: ROCURONIUM 10 MG/ML (5 ML VIAL) IV ONE (09:54)
[2022-03-22] MEDS ORDERED: MORPHINE SULFATE (PF) 0.3 MG/0.3 ML SYR ONE (09:54)
[2022-03-22] MEDS ORDERED: fentaNYL (PF) 50 MCG/ML 2 ML AMP ONE (09:54)
[2022-03-22] MEDS ORDERED: BUPIVACAINE (PF) 0.25% 30 ML VIAL SQ ONE ×2 (10:22→11:33)
[2022-03-22] MEDS ORDERED: LACTATED RINGERS 1,000 ML IV ONE (10:23)
[2022-03-22] MEDS ORDERED: IBUPROFEN 600 MG TAB PO PRN (11:43)
[2022-03-22] MEDS ORDERED: SIMETHICONE 80 MG CHEWABLE PO PRN (11:43)
[2022-03-22] MEDS ORDERED: Acetaminophen-Codeine 300-30mg TAB PO PRN ×2 (11:43)
[2022-03-22] MEDS ORDERED: ACETAMINOPHEN IV (For NPO) 1,000 MG in EMPTY BAG 1 BAG IVPB ONE (11:43)
[2022-03-22] MEDS ORDERED: ONDANSETRON 4 MG/2 ML VIAL IVP PRN (11:43)
[2022-03-22] MEDS ORDERED: IBUPROFEN IV 800 MG in SODIUM CHLORIDE 0.9% 250 ML IV ONE (11:44)
--- NOTE | 2022-03-22 13:02 | P.OP ---
Date of Procedure: 03/22/22 Preoperative Diagnosis: Postmenopausal bleeding, failed endometrial ablation, ovarian cyst Postoperative Diagnosis: Same Procedure(s) Performed: Robotic cyst vaginal hysterectomy with bilateral salpingo-oophorectomy, diagnostic cystoscopy Anesthesia: GERRY Surgeon: Stephanie Garza [place] Interpreter #1: Mihaela Shannon Estimated Blood Loss (ml): 10 IV fluids (ml): 750 Urine output (ml): 300 Pathology: other (Uterus fallopian tubes tubes and bilateral ovaries and cervix) Condition: stable Disposition: PACU Indications for Procedure: 51-year-old female status post endometrial ablation a few years back, continued postmenopausal bleeding, prior metal Tawana. In addition ovarian cyst with single septation was appreciated on ultrasound for evaluation of the pelvic anatomy. Patient did undergo ova/1 at testing which was low risk. Patient does have a family history with her maternal grandmother, ovarian cancer. Patient elects definitive treatment. Operative Findings: Normal uterus tubes and ovaries are appreciated Description of Procedure: Patient was taken back to the operating suite where general anesthesia was obtained without difficulty by the anesthesia department. She was prepped and draped in the normal sterile fashion in the dorsal lithotomy position a Knowles catheter was placed under sterile technique. A weighted speculum was placed in the posterior vaginal vault the anterior lip of the cervix was visualized and grasped with a single-tooth tenaculum the endocervical canal was then serially dilated and a Dynis uterine manipulator was advanced into the uterus. The balloon was insufflated with approximately 10 mL of air, the cervical cap was placed snugly against the cervix. All instruments were then removed from the patient's vaginal vault. Attention was then turned the patient's abdomen where approximately 2 finger breaths above the umbilical fold the Veress needle was placed. Through this incision the Veress needles placed. Once the Veress needle was deemed to be the proper position with a drop of CO2 pressure with insufflation of CO2 gas CO2 insufflation was allowed to occur. Approximately 3 L of gas were used to obtain pneumoperitoneum. At this time an 8 mm trocar with the laparoscope in place was placed through the skin incision and toward the pneumoperitoneum. The above-noted findings are visualized. The additional port sites are placed at 10 cm lateral 37 m inferior to midline port these are 8 mm ports and placed under direct visualization. In the left upper quadrant a 12 mm skin incision is made and a 12 mm trocar and sleeve is placed under direct visualization. At this time the da Vel robot is docked in the usual fashion. The right operative arm the monopolar scissors is placed, and the left operative arm the bipolar forceps is placed. Attention then turned the patient's left infundibulopelvic ligament which was grasped with the cautery coagulated distally and proximally divided. This continued through the broad and toward the round which was coagulated distally and proximal plane divided. Hemostasis appreciated throughout. The bladder flap from the left was created using sharp and blunt dissection. The attention was then turned to the patient's right infundibulopelvic ligament which was coagulated distally and proximal plane divided. This continued through the broad toward the round which was coagulated and transected. Hemostasis was appreciated, the bladder flap from the right was then created using sharp and blunt dissection. At this time a Ray-Jamaal was introduced into the abdomen to further dissect the bladder away from the operating field. On the right descending branch the uterine artery was visualized coagulated and transected hemostasis was noted. This was then repeated on the opposite side. Hemostasis was appreciated bilaterally. At this point the only remaining attachment was a vaginal attachment therefore a colpotomy incision was made no cervical vaginal fashion. The uterus bilateral fallopian tubes and bilateral ovaries were delivered through the vaginal opening. Vaginal cuff was then copiously irrigated and closed with 0 Vicryl wit h multiple [id number] sutures. Partially 5 sutures were used to obtain closure. The pelvis was then irrigated once again no bleeding was appreciated in all instrument removed from the patient's abdomen. Attention was then turned the patient's Knowles catheter which was removed without difficulty the cystoscope was then performed. The cystoscopy scope was placed through the urethra and toward the bladder bladder bubble was appreciated complete evaluation the bladder revealed normal anatomy, both ureteral orifices were noted be spilling clear yellow urine. The cystoscope was removed and the Knowles catheter was replaced. Attention then turned the patient's abdomen where the skin incisions were closed with 4-0 Vicryl in a subarticular fashion. Steri-Strips and sterile dressings were applied. Lidocaine was injected around the incisions after closure. All counts are correct 2 at the end of the procedure. Patient tolerated procedure well and was taken the recovery room awake in stable condition.
[2022-03-22] MEDS: SENNOSIDES-DOCUSATE SODIUM 1 EACH TAB PO SCH (21:07)
--- NOTE | 2022-03-23 04:12 | P.PN ---
Subjective Progress Note Date: 03/23/22 Principal diagnosis: Postop day 1 status post robotic cyst vaginal hysterectomy with bilateral salpingo-for ectomy, diagnostic cystoscopy Patient is doing well postoperatively. She is ambulating without difficulty. Pain is well-controlled. She did have her Knowles cath discontinued at 1999, she was unable to void and was just straight cathed for approximately 300 mL. Patient states she is not having an urge to void. She denies concerns or complaints at this time. Objective - Vital Signs Vital signs: Vital Signs Temp 97.8 F 03/22/22 21:04 Pulse 59 L 03/22/22 21:04 Resp 18 03/22/22 21:04 BP 123/79 03/22/22 21:04 Pulse Ox 99 03/22/22 21:04 FiO2 Intake & Output 03/22/22 03/22/22 03/23/22 06:59 18:59 06:59 Intake Total 2300 Output Total 585 500 Balance 1715 -500 Weight 71.1 kg Intake: IV 1700 Oral 600 Output: Urine 575 500 Uretheral (Knowles) 200 Estimated Blood Loss 10 - Constitutional General appearance: Present: average body habitus, cooperative, no acute distress - Respiratory Respiratory: bilateral: CTA - Cardiovascular Rhythm: regular - Gastrointestinal Gastrointestinal Comment(s): Incisions clean dry and intact General gastrointestinal: Present: soft - Psychiatric Psychiatric: Present: A&O x's 3, appropriate affect, intact judgment & insight Assessment and Plan (1) PMB (postmenopausal bleeding) Current Visit: Yes Status: Acute Code(s): N95.0 - POSTMENOPAUSAL BLEEDING SNOMED Code(s): 31467801 (2) Ovarian cyst Current Visit: Yes Status: Acute Code(s): N83.209 - UNSPECIFIED OVARIAN CYST, UNSPECIFIED SIDE SNOMED Code(s): 95743370 (3) FH: ovarian cancer Current Visit: Yes Status: Acute Code(s): Z80.41 - FAMILY HISTORY OF MALIGNANT NEOPLASM OF OVARY SNOMED Code(s): 667438713 (4) S/P laparoscopic hysterectomy Current Visit: Yes Status: Acute Code(s): Z90.710 - ACQUIRED ABSENCE OF BOTH CERVIX AND UTERUS SNOMED Code(s): 677020576 Plan: Patient is doing well postoperatively. We are awaiting spontaneous void. Anticipate discharge home later today after spontaneous void 2. Discharge instructions are reviewed, [id number] ibuprofen and Tylenol as needed for pain. Patient will be seen in the office for routine postoperative check in 2 weeks.
[2022-03-23 06:47] LABS: Basophils % (A) 0 %; Eosinophils # (A) 0.1 k/uL (0-0.7); Eosinophils % (A) 1 %; HCT 38.5 % (34.0-46.0); HGB 13.4 gm/dL (11.4-16.0); Lymphocytes % (A) 9 %; MCH 32.4 pg (25.0-35.0); MCHC 34.8 g/dL (31.0-37.0); Mean Platelet Volume 8.1; Monocytes # (A) 0.5 k/uL (0-1.0); Monocytes % (A) 4 %; Neutrophils # (A) 8.9 k/uL (1.3-7.7); Neutrophils % (A) 85 %; Platelet Count 169 k/uL (150-450); RBC 4.14 m/uL (3.80-5.40); RDW 12.1 % (11.5-15.5); WBC 10.6 k/uL (3.8-10.6)
[2022-03-23 06:58] LABS: MCV 93.1 fL (80.0-100.0)
[2022-03-23 08:13] VITALS: BP 115/70; PULSE 55; RESP 16; TEMP 97.7
[2022-03-23] MEDS: SENNOSIDES-DOCUSATE SODIUM 1 EACH TAB PO SCH (08:22)
--- NOTE | 2022-03-23 08:39 | P.PN ---
Progress Note - Text Progress Note Date: 03/23/22 Ms. Sanchez Avila is a 51 -year-old female had a history of postoperative day 1 , Robotic cyst vaginal hysterectomy with bilateral salpingo-oophorectomy, diagnostic cystoscopy. Spinal analgesia with Astramorph 300 g , and fentanyl 25 g for postop pain. Today patient is comfortable sitting in her bed. Today patient rated her pain level 3 out of 10 in severity. She is complaining nauseous, and itching sensation. Getting better compartment yesterday. Patient recommended to take Benadryl, and Zofran as needed. Denied any fever, drowsiness, confusion. Denied any weakness, tingling sensation in her lower extremities. Denied any bowel or bladder problems. Moving all extremities with out any difficulty. Able to walk without any difficulties. Vitals: Hemodynamically stable Continue oral pain medication as per primary team.
== END 2022-03-23 14:20 | disposition home or self-care (01) ==
LOC: OR 07:19 → 4FBP 11:50 → OR 03-23 14:20
PROVIDERS: ATTEND Obstetrics & Gynecology Obstetrics
DX: D26.0 Other benign neoplasm of cervix uteri (principal); N83.201 Unspecified ovarian cyst, right side; N83.202 Unspecified ovarian cyst, left side; G89.18 Other acute postprocedural pain; N95.0 Postmenopausal bleeding; N85.7 Hematometra; Z90.49 Acquired absence of other specified parts of digestive tract; Z98.51 Tubal ligation status; Z79.899 Other long term (current) drug therapy; Z80.41 Family history of malignant neoplasm of ovary; Z90.710 Acquired absence of both cervix and uterus
CPT/HCPCS: 81025; 86900; 86901; 85025; 86850; 88307; 58552; J2250; J1100; J0690; J2405 ×2; J0131; J1741

== ENCOUNTER 2022-09-01 07:22 | Day surgery (SDC) | payer BC ==
[~2022-09-01 07:22] MED LIST changes: -DEXAMETHASONE SOD PHOSPHATE 4 MG/ML 1 ML VIAL IV ONE; -HYDROmorphone 0.5 MG/0.5 ML SYRINGE IVP PRN; -ONDANSETRON 4 MG/2 ML VIAL IVP ONE; -SCOPOLAMINE 1 MG/72 HR PATCH TRANSDERM ONE
[2022-09-01 07:48] VITALS: RESP 16; TEMP 98.5
--- NOTE | 2022-09-01 08:14 | P.GSHP ---
History of Present Illness H&P Date: 09/01/22 CHIEF COMPLAINT: Colon screen HISTORY OF PRESENT ILLNESS: The patient is a 52-year-old female who presents for colon screen. Lower endoscopy was offered for further evaluation and management. PAST MEDICAL HISTORY: Please see list. PAST SURGICAL HISTORY: Please see list. MEDICATIONS: Please see list. ALLERGIES: Please see list. SOCIAL HISTORY: No illicit drug use FAMILY HISTORY: No reports of Crohn disease or ulcerative colitis. REVIEW OF ORGAN SYSTEMS: CONSTITUTIONAL: No reports of fevers or chills. PHYSICAL EXAM: VITAL SIGNS: Stable GENERAL: Well-developed pleasant in no acute distress. HEENT: No scleral icterus. Extraocular movements grossly intact. Moist buccal mucosa. NECK: Supple without lymphadenopathy. CHEST: Unlabored respirations. Equal bilateral excursions. CARDIOVASCULAR: Regular rate and rhythm. Distal 2+ pulses. ABDOMEN: Soft, nontender, nondistended. MUSCULOSKELETAL: No clubbing, cyanosis, or edema. ASSESSMENT: 1. Colon screen. PLAN: 1. Recommend proceeding with a lower endoscopy Past Medical History Past Medical History: No Reported History Additional Past Medical History / Comment(s): hx. colon polyps History of Any Multi-Drug Resistant Organisms: None Reported Past Surgical History: Appendectomy, Hysterectomy, Tubal Ligation, Uterine Ablation Additional Past Surgical History / Comment(s): D & C Past Anesthesia/Blood Transfusion Reactions: Previous Problems w/ Anesthesia, Motion Sickness, Postoperative Nausea & Vomiting (PONV) Additional Past Anesthesia/Blood Transfusion Reaction / Comment(s): had nerve block w/hyst, no sensation to urinate until 10 days post-op Smoking Status: Never smoker - Past Family History Mother Family Medical History: No Reported History Additional Family Medical History / Comment(s): Medications and Allergies Home Medications Medication Instructions Recorded Confirmed Type Cholecalciferol (Vitamin D3) 125 mcg PO DAILY 01/30/19 08/27/22 History [Vitamin D3] Ascorbic Acid [Vitamin C] 500 mg PO DAILY 03/17/22 08/27/22 History Calcium Carbonate [Calcium] 600 mg PO DAILY 03/17/22 08/27/22 History Multivitamins, Thera [Multivitamin 1 tab PO DAILY 03/17/22 08/27/22 History (formulary)] Allergies Allergy/AdvReac Type Severity Reaction Status Date / Time Sulfa (Sulfonamide Allergy Rash/Hives Verified 09/01/22 07:44 Antibiotics) Surgical - Exam Vital Signs Temp Pulse Resp BP Pulse Ox 98.5 F 69 16 159/70 100 09/01/22 07:45 09/01/22 07:45 09/01/22 07:45 09/01/22 07:45 09/01/22 07:45
[2022-09-01] MEDS ORDERED: LIDOCAINE 2% INJ 20 MG/ML (2 ML VIAL) ONE (08:20)
[2022-09-01] MEDS ORDERED: PROPOFOL 10 MG/ML 20 ML VIAL IV ONE (08:20)
[2022-09-01 09:33] VITALS: BP 128/72; PULSE 51
--- NOTE | 2022-09-01 09:44 | P.PCN ---
Date of Procedure: 09/01/22 Description of Procedure: PREOPERATIVE DIAGNOSIS: Personal history of colon polyps Family history malignant colon polyps Colonoscopy screening POSTOPERATIVE DIAGNOSIS: Personal history of colon polyps Family history malignant colon polyps Colonoscopy screening Tubular adenoma hepatic flexure Internal hemorrhoids, grade 2 OPERATION: Colonoscopy to the ileocecal valve and appendiceal orifice, cecum Colonoscopy with cold forceps biopsy SURGEON: Lucie Jain MD. ANESTHESIA: MAC. INDICATIONS: The patient is an 52-year-old female who presents family history of malignant colon polyps and personal history of colon polyps. Last colonoscopy 3 years. Benefits and risks were described and informed consent was obtained. DESCRIPTION OF PROCEDURE: The patient had undergone Sutab prep. The patient had been brought into the operating room and laid in the left lateral decubitus position. After adequate intravenous sedation, the rectum was examined with 2% lidocaine jelly. The prostate was unremarkable. External hemorrhoids were encountered. The rectal tone was within normal limits. No lesions were palpated in the rectal vault. An Olympus colonoscope was advanced until the cecum, ileocecal valve and appendiceal orifice were clearly viewed. The prep was excellent. No large sigmoid diverticulosis was encountered. Colonic polyps were found and removed. No evidence of focal colitis was found. Retroflexion of the scope demonstrated grade 2 internal hemorrhoids without active bleeding or inflammation. The colon was desufflated. The patient had tolerated the procedure well. Withdrawal time was over 6 minutes. FINDINGS: Aronchick preparation quality scale 1 (1-5) Internal hemorrhoids, grade 2 External hemorrhoids, grade 2. No arteriovenous malformations. Sigmoid diverticulosis, few Removal of 1 polyps: - Cold forceps biopsy at hepatic flexure, 5 mm polyp. No focal colitis. RECOMMENDATIONS: Repeat colonoscopy 5 years, 2027 Plan - Discharge Summary Discharge Rx Participant: No New Discharge Prescriptions: Continue Cholecalciferol (Vitamin D3) [Vitamin D3] 125 mcg PO DAILY Multivitamins, Thera [Multivitamin (formulary)] 1 tab PO DAILY Ascorbic Acid [Vitamin C] 500 mg PO DAILY Calcium Carbonate [Calcium] 600 mg PO DAILY Discharge Medication List Cholecalciferol (Vitamin D3) [Vitamin D3] 125 mcg PO DAILY 01/30/19 [History] Ascorbic Acid [Vitamin C] 500 mg PO DAILY 03/17/22 [History] Calcium Carbonate [Calcium] 600 mg PO DAILY 03/17/22 [History] Multivitamins, Thera [Multivitamin (formulary)] 1 tab PO DAILY 03/17/22 [History] Follow up Appointment(s)/Referral(s): Lucie Jain MD [STAFF PHYSICIAN] - As Needed Patient Instructions/Handouts: Colorectal Polyps (GEN) Activity/Diet/Wound Care/Special Instructions: Repeat colonoscopy 5 years, 2027 Discharge Disposition: HOME SELF-CARE
== END 2022-09-01 09:56 | disposition home or self-care (01) ==
LOC: ORWHC2ENDO 07:22
PROVIDERS: ATTEND Surgery Plastic and Reconstructive Surgery
DX: Z12.11 Encounter for screening for malignant neoplasm of colon (principal); K63.5 Polyp of colon; K64.4 Residual hemorrhoidal skin tags; K64.1 Second degree hemorrhoids; Z83.71 Family history of colonic polyps; Z90.49 Acquired absence of other specified parts of digestive tract; Z98.51 Tubal ligation status; Z98.890 Other specified postprocedural states; Z79.899 Other long term (current) drug therapy; Z88.2 Allergy status to sulfonamides
CPT/HCPCS: 45380; 88305; J2704; J2001

== ENCOUNTER → 2023-02-24 | Outpatient (CLI) | payer BC ==
--- NOTE | 2023-02-24 22:48 | MM ---
Reason for Exam: Screening (asymptomatic). Last screening mammogram was performed 12 month(s) ago. Patient History: Menarche at age 10. First Full-Term at age 28. Late child-bearing (after 28). Hysterectomy at age 51. Postmenopausal. Patient used Hormonal Contraceptives for 15 years. Sister had breast cancer, age 71. Sister had breast cancer, age 60. Risk Values: Kisha 5 year model risk: 3.4%. NCI Lifetime model risk: 22.8%. Prior Study Comparison: 02/19/2020 Bilateral Diagnostic Mammogram, [facility]. 02/20/2021 Bilateral Screening Mammogram, [facility]. 02/23/2022 Bilateral MG 3D screening mammo w/cad, [facility]. Tissue Density: The breast tissue is heterogeneously dense. This may lower the sensitivity of mammography. Findings: Analyzed By CAD. Unchanged low axillary tail lymph node on the left. There is no suspicious group of microcalcifications or new suspicious mass in either breast. Overall Assessment: Benign, BI-RAD 2 Management: Screening Mammogram of both breasts in 1 year. See note below in regards to patient's increased 5 year Kisha score and lifetime risk score. Patient should continue monthly self-breast exams. A clinical breast exam by your physician is recommended on an annual basis. This exam should not preclude additional follow-up of suspicious palpable abnormalities. Note on Kisha scores and lifetime risk: 1. A Kisha score greater than 3% is considered moderate risk. If this is the case, consider specialist referral to assess eligibility for a risk reducing agent. 2. If overall lifetime risk for the development of breast cancer is 20% or higher, the patient may qualify for future screening with alternating mammogram and breast MRI. Electronically signed and approved by: Carline Park M.D. Radiologist
== END | disposition home or self-care (01) ==
LOC: RADMAMWWP 06:51
PROVIDERS: ATTEND Obstetrics & Gynecology Obstetrics
DX: Z12.31 Encounter for screening mammogram for malignant neoplasm of breast (principal); Z78.0 Asymptomatic menopausal state; Z80.3 Family history of malignant neoplasm of breast
CPT/HCPCS: 77063; 77067

== ENCOUNTER → 2024-02-27 | Outpatient (CLI) | payer BC ==
--- NOTE | 2024-02-27 16:08 | MM ---
Reason for Exam: Screening (asymptomatic). Last screening mammogram was performed 12 month(s) ago. Patient History: Menarche at age 10. First Full-Term at age 28. Late child-bearing (after 28). Hysterectomy at age 51. Postmenopausal. Patient used Hormonal Contraceptives for 15 years. Sister had breast cancer, age 71. Sister had breast cancer, age 60. Risk Values: Kisha 5 year model risk: 3.5%. NCI Lifetime model risk: 22.4%. Prior Study Comparison: 02/20/2021 Bilateral Screening Mammogram, [facility]. 02/23/2022 Bilateral MG 3D screening mammo w/cad, [facility]. 02/24/2023 Bilateral MG 3D screening mammo w/cad, [facility]. Tissue Density: The breasts are heterogeneously dense, which may obscure small masses. Findings: Analyzed By CAD. The pattern is symmetrical. Some stable chronic nodularities in the outer right breast. Nodularity is in the upper left mediolateral oblique view. No significant interval change is evident. No suspicious groups of microcalcifications, spiculated or lobular masses, architectural distortion or other secondary signs of malignancy are mammographically apparent. Overall Assessment: Benign, BI-RAD 2 Management: Screening Mammogram of both breasts in 1 year. A negative mammogram report should not preclude additional follow up of suspicious palpable abnormalities. Patient should continue monthly self breast exam. A clinical breast exam by your physician is recommended on an annual basis and results should be correlated with mammographic findings. Note on Kisha scores and lifetime risk: 1. A Kisha score greater than 3% is considered moderate risk. If this is the case, consider specialist referral to assess eligibility for a risk reducing agent. 2. If overall lifetime risk for the development of breast cancer is 20% or higher, the patient may qualify for future screening with alternating mammogram and breast MRI. [facility], , 02/27/2024 4:05 PM. Electronically signed and approved by: Dallin Campos D.O. Radiologis
== END | disposition home or self-care (01) ==
LOC: RADMAMWWP 06:54
PROVIDERS: ATTEND Obstetrics & Gynecology Obstetrics
DX: Z12.31 Encounter for screening mammogram for malignant neoplasm of breast
CPT/HCPCS: 77063; 77067